=== PATIENT | male | born 1985 | race Caucasian/White ===

== ENCOUNTER → 2021-12-24 | Outpatient (CLI) | payer OTHER ==
--- NOTE | 2022-01-07 22:24 | EM ---
EVENT MONITOR The patient was monitored between the and December. Baseline rhythm is sinus mechanism with normal conduction. The patient had episode of sinus tachycardia, but no atrial fibrillation or pauses. No ventricular ectopic activity was noted. MMALEL / IJN: [id number] /
== END | disposition home or self-care (01) ==
LOC: RADECHMAIN 11:44
PROVIDERS: ATTEND Family Medicine
DX: I47.1 Supraventricular tachycardia (principal); R00.2 Palpitations
CPT/HCPCS: 93270

== ENCOUNTER 2023-07-09 10:49 | Emergency (ER) | payer OTHER ==
[2023-07-09 11:13] VITALS: TEMP 98.3
[2023-07-09] MEDS: KETOROLAC 15 MG/ML 1 ML VIAL IVP STA (11:42)
[2023-07-09] MEDS: methylPREDNISolone SOD SUCCI 125 MG/2 ML VIAL IV STA (11:43)
[2023-07-09] MEDS: ORPHENADRINE 30 MG/ML 2 ML VIAL IVP STA (11:46)
--- NOTE | 2023-07-09 12:10 | CT ---
EXAMINATION TYPE: CT lumbar spine wo con DATE OF EXAM: 07/09/2023 12:03 PM COMPARISON: None HISTORY: Low back pain x1 week, no known injury. CT DLP: 909 mGycm Automated exposure control for dose reduction was used. Unenhanced CT of the lumbar spine was performed. Bone and soft tissue window settings are submitted as well as coronal and sagittal reconstructions. L1-L2: Normal disc space height. No disc herniation protrusion or central stenosis. No facet joint arthropathy. No evidence for foraminal encroachment. L2-L3: Normal disc space height. No disc herniation protrusion or central stenosis. No facet joint arthropathy. No evidence for foraminal encroachment. L3-L4: Gevk-mi-kfablact degenerative disc space narrowing. Circumferential disc bulge greatest shelver iorly with effacement of the ventral thecal sac and resultant bilateral lateral recess stenosis and m ild left-sided foraminal encroachment. No central stenosis present. L4-L5: Schmorl node present inferior endplate of L4 and superior endplate of L5. Mild degenerative di sc space narrowing. Posterior disc bulge with mild effacement of ventral thecal sac. No definite late ral recess stenosis or central stenosis. Mild left foraminal encroachment. L5-S1: Mild degenerative disc space narrowing. Broad-based disc bulge or herniation posterocentrally into the left. There may be intermittent left lateral recess stenosis. No central stenosis. Foramina are patent. No evidence for a lumbar segment fracture or paraspinal mass. IMPRESSION: 1. Multilevel degenerative disc disease. 2. Multilevel disc bulge with very degrees of lateral recess stenosis and foraminal encroachment. Dis c herniation at L5-S1 is difficult to exclude as outlined above.
--- NOTE | 2023-07-09 12:10 | ED ---
General Adult HPI - General Chief complaint: Back Pain/Injury Stated complaint: Low back pain Time Seen by Provider: 07/09/23 11:05 Source: patient, RN notes reviewed Mode of arrival: ambulatory Limitations: no limitations - History of Present Illness Initial comments: 37-year-old male presents emergency department chief complaint of back pain. He has been following up with Dr. Jacques Patient states the pain has been worsening last few days. Patient states he has been under physical therapy. Patient states he is having increasing symptoms with any movement to the right leg symptoms down into his right leg denies any bowel, bladder incontinence or retention. - Related Data Previous Rx's Medication Instructions Recorded Cyclobenzaprine [Flexeril] 10 mg PO TID PRN #15 tab 07/09/23 predniSONE 50 mg PO DAILY #5 tab 07/09/23 Allergies Allergy/AdvReac Type Severity Reaction Status Date / Time No Known Allergies Allergy Verified 07/09/23 11:09 Review of Systems ROS Statement: Those systems with pertinent positive or pertinent negative responses have been documented in the HPI. ROS Other: All systems not noted in ROS Statement are negative. Past Medical History Additional Past Medical History / Comment(s): Back problems History of Any Multi-Drug Resistant Organisms: None Reported Past Surgical History: No Surgical Hx Reported Past Psychological History: No Psychological Hx Reported Smoking Status: Never smoker Past Alcohol Use History: None Reported Past Drug Use History: None Reported General Exam Limitations: no limitations General appearance: alert, in no apparent distress Head exam: Present: atraumatic, normocephalic, normal inspection Eye exam: Present: normal appearance, PERRL, EOMI. Absent: scleral icterus, conjunctival injection, periorbital swelling Respiratory exam: Present: normal lung sounds bilaterally. Absent: respiratory distress, wheezes, rales, rhonchi, stridor Cardiovascular Exam: Present: regular rate, normal rhythm, normal heart sounds. Absent: systolic murmur, diastolic murmur, rubs, gallop, clicks GI/Abdominal exam: Present: soft, normal bowel sounds. Absent: distended, tenderness, guarding, rebound, rigid Extremities exam: Present: other (Lower extremity pulses equal bilaterally, equal color ankle warmth nontender calf pain with range of motion right leg) Back exam: Present: tenderness, paraspinal tenderness. Absent: full ROM, vertebral tenderness Neurological exam: Present: alert, oriented X3, reflexes normal. Absent: motor sensory deficit Skin exam: Present: warm, dry, intact, normal color. Absent: rash Course Vital Signs 07/09/23 07/09/23 11:07 14:07 Temperature 98.3 F Pulse Rate 79 70 Respiratory 20 18 Rate Blood Pressure 122/81 124/78 O2 Sat by Pulse 98 98 Oximetry Medical Decision Making - Medical Decision Making Was pt. sent in by a medical professional or institution (, PA, PAID SEARCH MARKETING STRATEGIST, urgent care, hospital, or fpc...) When possible be specific @ -Orthopedics Did you speak to anyone other than the patient for history (EMS, parent, family, police, friend...)? What history was obtained from this source @ -No Did you review nursing and triage notes (agree or disagree)? Why? @ -I reviewed and agree with nursing and triage notes Were old charts reviewed (outside hosp., previous admission, EMS record, old EKG, old radiological studies, urgent care reports/EKG's, fpc records)? Report findings @ -No old charts were reviewed Differential Diagnosis (chest pain, altered mental status, abdominal pain women, abdominal pain men, vaginal bleeding, weakness, fever, dyspnea, syncope, headache, dizziness, GI bleed, back pain, seizure, CVA, palpatations, mental health, musculoskeletal)? @ -Differential Back Pain: Strain, zoster, cauda equina syndrome, epidural abscess, vertebral osteomyelitis, discitis, fracture, subluxation, disc herniation, DJD, spinal stenosis, dissection, AAA, pancreatitis, peptic ulcer disease, pyelonephritis, kidney stone, this is not meant to be an all-inclusive list. EKG interpreted by me (3pts min.). @ -None X-rays interpreted by me (1pt min.). @ -None done CT interpreted by me (1pt min.). @ -CT lumbar spine showing degenerative changes throughout the lumbar spine significant changes L5-S1 with possible disc herniation U/S interpreted by me (1pt. min.). @ -None done What testing was considered but not performed or refused? (CT, X-rays, U/S, labs)? Why? @ -None What meds were considered but not given or refused? Why? @ -None Did you discuss the management of the patient with other professionals (professionals i.e. , PA, PAID SEARCH MARKETING STRATEGIST, lab, RT, psych nurse, social media intern, plastics tooling engineer, teacher, commissioned fire officer, child welfare caseworker)? Give summary @ -ankita lang is on-call for Dr. Page and send recommending steroids, analgesics and follow-up on Thursday at scheduled appointment for MRI Was smoking cessation discussed for >3mins.? @ -No Was critical care preformed (if so, how long)? @ -No Were there social determinants of health that impacted care today? How? (Homelessness, low income, unemployed, alcoholism, drug addiction, transportation, low edu. Level, literacy, decrease access to med. care, skilled nursing, rehab)? @ -No Was there de-escalation of care discussed even if they declined (Discuss DNR or withdrawal of care, Hospice)? DNR status @ -No What co-morbidities impacted this encounter? (DM, HTN, Smoking, COPD, CAD, Cancer, CVA, ARF, Chemo, Hep., AIDS, mental health diagnosis, sleep apnea, morbid obesity)? @ -None Was patient admitted / discharged? Hospital course, mention meds given and route, prescriptions, significant lab abnormalities, going to OR and other pertinent info. @ -Discharge patient is discharged in stable condition low back pain, disc herniation patient has no red flag symptoms discharged on steroids, muscle relaxer's return parameters discussed Undiagnosed new problem with uncertain prognosis? @ -No Drug Therapy requiring intensive monitoring for toxicity (Heparin, Nitro, Insulin, Cardizem)? @ -No Were any procedures done? @ -No Diagnosis/symptom? @ -Lumbar disc herniation Acute, or Chronic, or Acute on Chronic? @ -Acute Uncomplicated (without systemic symptoms) or Complicated (systemic symptoms)? @ -Uncomplicated Side effects of treatment? @ -No Exacerbation, Progression, or Severe Exacerbation? @ -No Poses a threat to life or bodily function? How? (Chest pain, [place], [place], pneumonia, PE, COPD, DKA, ARF, appy, cholecystitis, CVA, Diverticulitis, Homicidal, Suicidal, threat to staff... and all critical care pts) @ -No Disposition Clinical Impression: Lumbar disc herniation with radiculopathy Disposition: HOME SELF-CARE Condition: Stable Instructions (If sedation given, give patient instructions): Lumbar Disc Herniation (ED) Additional Instructions: Please return to the Emergency Department if symptoms worsen or any other concerns. Prescriptions: Cyclobenzaprine [Flexeril] 10 mg PO TID PRN #15 tab PRN Reason: Muscle Spasm predniSONE 50 mg PO DAILY #5 tab Is patient prescribed a controlled substance at d/c from ED?: No Referrals: Reji Espinoza Jr, DO [Primary Care Provider] - 1-2 days Time of Disposition: 13:58
[2023-07-09 14:11] VITALS: BP 124/78; PULSE 70; RESP 18
== END 2023-07-09 14:08 | disposition home or self-care (01) ==
LOC: EC 10:49
DX: M51.16 Intervertebral disc disorders with radiculopathy, lumbar region (principal)
CPT/HCPCS: 72131; 96374; 96375 ×2; 99283; J2360; J1885; J2919

== ENCOUNTER → 2023-07-23 | Outpatient (CLI) | payer OTHER ==
--- NOTE | 2023-07-24 08:00 | MR ---
EXAMINATION TYPE: MR lumbar spine wo con DATE OF EXAM: 07/23/2023 COMPARISON: None HISTORY: Lower back pain, RLE radiculopathy. CONTRAST: 0 mL intravenous Gadavist. TECHNIQUE: Multiplanar, multisequence images of the lumbar spine were acquired. FINDINGS: Cord terminates at the L1-2 level. L5-S1: Minimal disc bulge has anterior thecal sac contact. There is increased signal on T2-weighted s equences suggesting underlying annular tear No AP spinal canal stenosis present. No foraminal stenos is. . L4-L5: No significant disc bulge or disc herniation. No spinal canal stenosis. No foraminal stenosi s. Mild facet hypertrophy is present. There is increased signal on T2-weighted sequences within the endplates small amount of endplate deviation. This could be due to Schmorl's node formation. The nohemy dy is without contrast, in the proper clinical setting discitis could be considered. MRI with contras t may be useful for additional evaluation. L3-L4: No significant disc bulge or disc herniation. No spinal canal stenosis. No foraminal stenosi s. Neural foramen are patent.. L2-L3: No significant disc bulge or disc herniation. No spinal canal stenosis. No foraminal stenosi s. Neural foramen are patent.. L1-L2: No significant disc bulge or disc herniation. No spinal canal stenosis. No foraminal stenosi s. Neural foramen are patent.. T12-L1: No significant disc bulge or disc herniation. No spinal canal stenosis. No foraminal stenos is. Neural foramen are patent.. There may be a cyst in the mid left kidney IMPRESSION: 1. Mild disc bulge L5-S1 with possible annular tear. No stenosis is evident. 2. Endplate changes at L4-5. This could be related to Schmorl's node formation. In the proper clinica l setting early discitis could be considered. Consider follow-up MRI with contrast for additional lili luation.
== END | disposition home or self-care (01) ==
LOC: RADMRIMAIN 17:32
PROVIDERS: ATTEND Orthopaedic Surgery
DX: M47.26 Other spondylosis with radiculopathy, lumbar region (principal); M51.17 Intervertebral disc disorders with radiculopathy, lumbosacral region
CPT/HCPCS: 72148

== ENCOUNTER → 2023-10-05 | Outpatient (CLI) | payer OTHER | LOC: PNWHC3 13:00 | PROVIDERS: ATTEND Specialist | DX: M47.26 Other spondylosis with radiculopathy, lumbar region (principal) | CPT/HCPCS: 99211 ==

== ENCOUNTER → 2023-11-03 | Day surgery (SDC) | payer OTHER ==
[~2023-11-03] MED LIST: DEXAMETHASONE SOD PHOSPHATE 10 MG/ML 1 ML VIAL ONE; IOPAMIDOL M300 15ML VIAL ONE; LACTATED RINGERS 1,000 ML IV SCH; ROPIVACAINE 5MG/ML 20ML VIAL ONE
[2023-11-03 07:01] VITALS: TEMP 96.2
[2023-11-03 07:56] VITALS: RESP 16
--- NOTE | 2023-11-03 07:56 | P.PCN ---
Description of Procedure: PREOPERATIVE DIAGNOSIS: 1-Lumbar radiculopathy . 2-lumbar degenerative disc disease. 3-lumbar spondylosis with lumbar facet arthropathy without myelopathy POSTOPERATIVE DIAGNOSIS: 1-lumbar radiculopathy. 2-lumbar degenerative disc disease. 3-lumbar spondylosis with facet arthropathy without myelopathy PROCEDURE 1. Transforaminal epidural steroid injection under fluoroscopic guidance at RIGHT L3-4 level. (Fluoroscopy images stored on file in the radiology Department ) 2. Lumbar epidurogram . ANESTHESIA: Local with 1% lidocaine 5 ml. subcutaneously. Continuous pulse ox, EKG, blood pressure and verbal communication was maintained with the patient. EBL: Minimal PROCEDURE INDICATION: The patient with low back pain and radiculopathy symptoms unresponsive to conservative treatment. The patient was seen and identified in the preoperative area. Risks, benefits, complications, and alternatives were discussed with the patient. The patient agreed to proceed with the procedure and signed the consent. IV was started, and vital signs were stable. PROCEDURE DESCRIPTION / TECHNIQUE: After getting consent, patient was taken to the OR and time out was completed. The patient was placed in the prone position on procedure table and a pillow was placed under the abdomen to reduce lumbar lordosis. The lumbosacral area was prepped and draped in the usual sterile fashion. Critical pause was taken. After injecting 5 mL of plain 1% lidocaine subcutaneously, under oblique view of the fluoroscope, a 22-gauge spinal needle was introduced under the tunnel view of the fluoroscope on the RIGHT side and the needle was advanced so that the tip of the needle was at the posterior inferior quadrant of the intervertebral foramen at the lateral view of the fluoroscope and in the lateral third of the facet column in the AP view of the fluoroscope. Negative CSF, negative blood, negative paresthesia. After needle position confirmation by AP and cross table lateral view, 3 mL of Isovue-M 200 contrast was injected under continuous fluoroscope. No contrast was noted in the intrathecal or intravascular space. The epidurogram was noted. Again after repeated negative aspiration 2.5 mL solution was injected which consists 0.5 mL of normal saline mixed with 2 mL of 20 mg dexamethasone. Needle was removed . At the end of the procedure, skin was cleansed, and bandages were applied. DISPOSITION / PLANS: No complication. The patient tolerated the procedure well. The patient was placed in a supine position and transferred to the recovery area in a stable condition for observation. There was no evidence of lower extremity motor or sensory deficit after the procedure. Patient was discharged from the recovery room after meeting discharge criteria. Home discharge instructions were given to the patient by the staff. The patient was reexamined prior to discharge.
[2023-11-03 08:05] VITALS: BP 113/73; PULSE 60
--- NOTE | 2023-11-03 08:24 | FL ---
Fluoroscopy History: TRANSFORAMINAL transforaminal dap 0.19940 fl 14.7
== END ==
LOC: ORPAIN 06:18
PROVIDERS: ATTEND Pain Medicine Interventional Pain Medicine
DX: M47.26 Other spondylosis with radiculopathy, lumbar region (principal); M51.16 Intervertebral disc disorders with radiculopathy, lumbar region
CPT/HCPCS: 64483

== ENCOUNTER → 2023-11-19 | Outpatient (CLI) | payer OTHER ==
[2023-11-19 13:02] VITALS: BP 116/73; PULSE 61; RESP 16; TEMP 97.8
--- NOTE | 2023-11-19 14:46 | P.PAINPG ---
PQRS Measure Charge Sheet Comment: A 38 yr old male with a history of severe and chronic LBP secondary to radiculopathy, spondylosis with facet arthropathy without myelopathy presents today for evalaution s/p R TFESI L3-L4 #1. Pt states he experienced 0% pain relief s/p procedure. Pain level is provoked at 8 /10 in intensity, constant, predominantly axial, localized in the lumbar spine, achy in character w occasional shooting towards the R hip and occasionally the L hip. Pain is provoked by sitting/ standing for periods > 30 min. Pain is alleviated with physician guided exercises every other day since Jul 2023, heat, ice, medications, manual massage, repositioning and rest. Interventional pain procedures completed include R TFESI L3-L4 x1 Patient is currently on Toradol, Flexeril, Ibu Patient denies any side effects of the medication(s), denies excessive drowsiness or sleepiness, denies suicidal ideation and reports that the current pain medication is helping to control the pain and improve activities of daily living. Patient denies any motor or sensory deficits. Patient denies any fever or night sweats, denies any change in the bowel movements or urination. Physical Examination: -Constitutional: Cooperative. Not in acute distress . - Neurologic: Cranial nerve II to XII intact. No focal neurological deficits. - Psychatric: Alert & oriented x 3. Matching mood & appropriate affect. Judgment and insight intact. - Musculoskeletal: Cervical spine: Muscle bulk/ tone/ strength in the bilateral upper extremities normal Vertebral body tenderness to palpation over Spurling test positive Distraction test positive Facet loading test positive TTP Thoracic spine Muscle bulk / tone/ strength in the bilateral paraspinal muscles normal Vertebral body tender to palpation over Facet loading test positive TTP Lumbar spine: Motor bulk/ tone/ strength lower extremities , thigh and legs : 5/5 Deep tendon reflexes : Normal Knee Jerk. Normal Ankle Jerk . Vertebral body tenderness to palpation over L3 Good Test positive R L3-4 Lumbar Facet Loading Test positive Straight Leg Raise: positive at 30 degrees right side/ left side Gaenslen's Test positive Sacral spine : Severe tenderness over the Sacroiliac joint: right side / left side Range of motion: Flexion of the lumbar spine <60 degrees Range of motion: Extension of the lumbar spine <20 degrees Gaenslen's Test positive right side / left side Farideh test: positive right side / left side Thigh Thrust Test positive right side / left side Sacral Thrust Test positive right side / left side Imaging: MRI non contrast lumbar spine from 07/23/23 reviewed Assessment and plan: Chronic LBP secondary to lumbar radiculopathy, spondylosis with facet arthropathy without myelopathy Will follow up w Dr Jacques to explore additional treatment options. All questions answered. I have spent less than 30 minutes on patient care today. Dr Nelson was paula ilable by phone for the evaluation of this patient. The time was used to review the medical records including relevant urine studies and Prescription history (MAPs), review of the available imaging, evaluation and examination of the patient, coordination of care with the medical staff and if applicable referring physicians, as well as creation of the medical record Home Medications: Ambulatory Orders Ibuprofen [Advil] 200 % PRN MDD 400 11/19/23 Controlled Substance Measures - Controlled Substance Measures Is patient prescribed a controlled substance at discharge?: No
== END ==
LOC: PNWHC3 12:46
PROVIDERS: ATTEND Specialist
DX: M54.16 Radiculopathy, lumbar region
CPT/HCPCS: 99211

== ENCOUNTER → 2024-03-07 | Outpatient (CLI) | payer OTHER ==
--- NOTE | 2024-03-08 12:13 | MR ---
EXAMINATION TYPE: MR lumbar spine wo/w con DATE OF EXAM: 03/07/2024 COMPARISON: Prior MRI lumbar spine July 23, [address] July 09, 2023 HISTORY: Pain in lower back, patient heard a "pop" in his lower back in January TECHNIQUE: Multiplanar, multisequence images of the lumbar spine is performed without and with IV contrast, util izing 9ml mL intravenous Gadobutrol FINDINGS: Sagittal images of the lumbar spine show vertebral body heights to remain satisfactory. Sli ght grade 1 retrolisthesis L3 on L4 is redemonstrated. The intervertebral discs redemonstrate some di sc desiccation with moderate disc space narrowing at L3-L4 level. There is persistent moderate disc s pace narrowing with heterogeneous Modic type I endplate changes at L4-L5 level. The conus medullaris remains normal in position and signal ending at L1-L2 level. Some heterogeneous enhancement of the e ndplate changes posterior L4-L5 level with additional less prominent linear enhancement in the disc. Axial images show T12-L1 level to remain within normal limits. Similar findings at L1-L2 and L2-L3 le vels. Axial images at L3-L4 level shows mild broad disc bulge minimally effacing the anterior thecal sac an d causing mild bilateral anterior inferior neural foraminal narrowing. Slightly more prominent right foraminal component appears to efface along the anterior inferior aspect of the exiting right L3 nerv e sagittal image 14 on the current study. Axial images at the L4-L5 level redemonstrate mild facet arthropathy bilaterally. There is mild broad disc bulge causing mild bilateral anterior inferior neural foraminal narrowing. Axial images at the L5-S1 level show mild broad disc bulge but the spinal canal is preserved and bila teral neural foramina are patent. No significant change from prior. Probable small simple thin-walled cortical cyst left kidney on axial image 28 is redemonstrated. Pamela lar slightly smaller lesion seen in right kidney centrally axial image 30. IMPRESSION: Multilevel degenerative change in the mid to lower cervical spine as detailed above. Nons pecific enhancement posterior L4-L5 level with less prominent but some linear disc enhancement. Acute discitis/osteomyelitis is not entirely excluded in appropriate clinical setting. Advise strict clini jessica correlation. [facility], , 03/08/2024 12:11 PM
== END | disposition home or self-care (01) ==
LOC: RADMRIMAIN 13:04
PROVIDERS: ATTEND Orthopaedic Surgery
DX: M47.816 Spondylosis without myelopathy or radiculopathy, lumbar region (principal); M51.26 Other intervertebral disc displacement, lumbar region; M47.812 Spondylosis without myelopathy or radiculopathy, cervical region
CPT/HCPCS: 72158; A9585